=== PATIENT | female | born 1955 | race Caucasian/White ===

== ENCOUNTER 2018-08-08 02:45 | Day surgery (SDC) | payer OTHER ==
[~2018-08-08 02:45] MED LIST: Armour Thyroid15 MG; Norco 5-325 Ta1 EACH PO
== END 2018-08-08 22:50 | disposition home or self-care (01) ==
LOC: MOI US 02:45
PROC: 0HBT3ZX Excision of Right Breast, Percutaneous Approach, Diagnostic (ICD-10-PCS; principal; 2018-08-08)
DX: C50.911 Malignant neoplasm of unspecified site of right female breast (principal); Z17.0 Estrogen receptor positive status [ER+]; C77.3 Secondary and unspecified malignant neoplasm of axilla and upper limb lymph nodes
CPT/HCPCS: 19083; 38505; 76942; 77065; 88305; 88360; A4648